=== PATIENT | male | born 1975 | race African-American/Black ===

== ENCOUNTER 2018-05-23 22:32 | Emergency (ER) | payer OTHER, MEDICAID ==
[~2018-05-23] VITALS: Ht 175.3 cm; Wt 82.0 kg
[2018-05-23 23:39] VITALS: BP 162/102
[2018-05-24] MEDS ORDERED: ACETAMINOPHEN 325MG TABLET PO ONE
[2018-05-24] MEDS ORDERED: MAGNESIUM/ALUMINUM HYDROXIDE/SIMETHICONE 30ML UDC PO ONE
== END 2018-05-23 23:58 | disposition home or self-care (01) ==
LOC: ER 22:32
DX: I10 Essential (primary) hypertension (principal); H53.2 Diplopia; F17.200 Nicotine dependence, unspecified, uncomplicated; Z90.81 Acquired absence of spleen
CPT/HCPCS: 99283

== ENCOUNTER 2018-08-29 10:57 | Emergency (ER) | payer MEDICAID, OTHER ==
[~2018-08-29] VITALS: Ht 175.3 cm; Wt 85.0 kg
[2018-08-29] MEDS ORDERED: SODIUM CHLORIDE 0.9% 1,000 ML IV ONE (11:46)
[2018-08-29] MEDS ORDERED: MORPHINE SULFATE 4 MG/ML CPJ (NOT FOR IM USE) IV ONE (12:00)
[2018-08-29] MEDS ORDERED: ONDANSETRON HCL 4MG/2ML INJ IV ONE (12:00)
[2018-08-29 12:12] LABS: CHLORIDE 105 mEq/L (98-107)
[2018-08-29 12:13] LABS: EOSINOPHILS % 0.2 % (0.0-5.0); HEMATOCRIT. 39.1 % (42.0-52.0); HEMOGLOBIN. 13.3 g/dL (14.0-18.0); LYMPHOCYTES % 27.1 % (20.0-50.0); MEAN CORPUSCULAR HEMOGLOBIN 30.9 pg (28.0-32.0); MEAN CORPUSCULAR VOLUME 90.7 fL (80.0-94.0); MONOCYTES % 8.8 % (2.0-8.0); NEUTROPHILS % 62.9 % (40.0-76.0); PLATELET 337 x1000/uL (130-400); RED BLOOD CELL COUNT 4.31 mill/uL (4.7-6.1); RED CELL DISTRIBUTION WIDTH 13.1 % (11.6-14.6)
[2018-08-29 12:16] LABS: ETHANOL BLOOD < 10 mg/dL
[2018-08-29 15:47] LABS: *BARBITURATES SCREEN URINE NEGATIVE (NEGATIVE); *BENZODIAZEPINES SCREEN URINE NEGATIVE (NEGATIVE); *COCAINE SCREEN URINE NEGATIVE (NEGATIVE); METHADONE URINE SCREEN NEGATIVE (NEGATIVE)
[2018-08-29 15:48] LABS: *AMPHETAMINES SCREEN URINE PRESUMTIVE POSITIVE (NEGATIVE); CANNABINOID URINE SCREEN PRESUMTIVE POSITIVE (NEGATIVE); OPIATES URINE SCREEN NEGATIVE (NEGATIVE); PHENCYCLIDINE URINE SCREEN NEGATIVE (NEGATIVE)
[2018-08-29 18:31] VITALS: BP 154/94
== END 2018-08-29 18:34 | disposition home or self-care (01) ==
LOC: ER 10:57
DX: S09.8XXA Other specified injuries of head, initial encounter (principal); Y08.89XA Assault by other specified means, initial encounter; Y93.89 Activity, other specified; Y92.89 Other specified places as the place of occurrence of the external cause; Y99.8 Other external cause status; I10 Essential (primary) hypertension; Z88.0 Allergy status to penicillin; Z90.81 Acquired absence of spleen
CPT/HCPCS: 36415; 70450; 70486; 71045; 72125; 72170; 73090; 73110; 73130; 73590; 80048; 80305; 80307; 80320; 80329; 85025; 96374; 99284; J2270; J2405; J7030; Z7610; G0480

== ENCOUNTER 2021-03-19 03:22 | Inpatient (IN) | payer MEDICAID ==
[~2021-03-19] VITALS: Ht 182.9 cm; Wt 101.2 kg
[2021-03-19] MEDS ORDERED: LIDOCAINE HCL/PF 1% 2ML VIAL ONE (03:30)
[2021-03-19] MEDS ORDERED: MAGNESIUM 2 G PREMIX 50 ML IV ONE (03:30)
[2021-03-19] MEDS ORDERED: IPRATROPIUM BROMIDE (0.02%) 0.5MG/2.5ML NEB HHN STA (03:30)
[2021-03-19] MEDS ORDERED: METHYLPREDNISOLONE SOD SUCC 125 MG/2 ML VIAL IV STA (03:30)
[2021-03-19] MEDS: ALBUTEROL (0.083%) 2.5MG/3ML NEB HHN SCH ×3 (03:30→04:26)
[2021-03-19] MEDS ORDERED: IPRATROPIUM/ALBUTEROL 0.5-3(2.5)MG/3ML NEB ONE (03:49)
[2021-03-19 03:56] LABS: BASOPHILS % 0.6 % (0.0-2.0); EOSINOPHILS % 0.2 % (0.0-5.0); HEMATOCRIT. 42.9 % (42.0-52.0); HEMOGLOBIN. 14.2 g/dL (14.0-18.0); LYMPHOCYTES % 13.2 % (20.0-50.0); MEAN CORPUSCULAR HEMOGLOBIN 28.8 pg (28.0-32.0); MEAN PLATELET VOLUME 8.9 fl (7.4-10.4); PLATELET 294 x1000/uL (130-400); RED BLOOD CELL COUNT 4.93 mill/uL (4.7-6.1); RED CELL DISTRIBUTION WIDTH 13.8 % (11.6-14.6)
[2021-03-19 04:02] LABS: BG BASE EXCESS 3.8 mmol/L (-2.0-2.0); BG DEOXYHEMOGLOBIN 21.4 % (0.0-5.0); BG FRACTION INSPIRED OXYGEN 50; BG METHEMOGLOBIN 0.3 % (0.0-1.5); BG OXYGEN SATURATION 78.1 % (92.0-98.5); BG OXYHEMOGLOBIN 76.3 % (94.0-97.0); BG PCO2 51.2 mmHg (35.0-45.0); BG PH 7.385 (7.350-7.450); BG PO2 43.4 mmHg (75.0-100.0); BG SAMPLE SITE RIGHT RADIAL; BG TOTAL HEMOGLOBIN 14.5 g/dL (12.0-18.0); BG VENT MODE MASK - BIPAP
[2021-03-19 04:14] LABS: CHLORIDE 98 mEq/L (98-107)
[2021-03-19] MEDS ORDERED: HYDRALAZINE 20MG/ML VIAL IV ONE (05:30)
[2021-03-19 11:06] LABS: BG CARBOXYHEMOGLOBIN 0.4 % (0.5-1.5); BG DEOXYHEMOGLOBIN 0.8 % (0.0-5.0); BG HCO3 ACT 28.4 mmol/L (22.0-26.0); BG METHEMOGLOBIN 0.4 % (0.0-1.5); BG OXYGEN SATURATION 99.2 % (92.0-98.5); BG OXYHEMOGLOBIN 98.4 % (94.0-97.0); BG PCO2 46.1 mmHg (35.0-45.0); BG PH 7.407 (7.350-7.450); BG PO2 185.2 mmHg (75.0-100.0); BG SAMPLE SITE RIGHT RADIAL; BG TOTAL HEMOGLOBIN 14.6 g/dL (12.0-18.0); BG VENT MODE MASK - BIPAP
[2021-03-19] MEDS ORDERED: HYDRALAZINE 20MG/ML VIAL IV PRN (11:15)
[2021-03-19] MEDS ORDERED: IPRATROPIUM/ALBUTEROL 0.5-3(2.5)MG/3ML NEB NEB PRN (11:15)
[2021-03-19] MEDS ORDERED: GUAIFENESIN 200MG/10ML SUGAR FREE UDC PO PRN (11:15)
[2021-03-19] MEDS ORDERED: ONDANSETRON HCL 4MG/2ML INJ IV PRN (11:15)
[2021-03-19] MEDS ORDERED: MAGNESIUM/ALUMINUM HYDROXIDE/SIMETHICONE 30ML UDC PO PRN (11:15)
[2021-03-19] MEDS: AMLODIPINE 10MG TABLET PO SCH (11:15)
[2021-03-19] MEDS ORDERED: ACETAMINOPHEN 325MG TABLET PO PRN ×2 (11:15)
[2021-03-19] MEDS: ENOXAPARIN 40MG/0.4ML SYR SUBCUT SCH (12:32)
[2021-03-19] MEDS: CLONIDINE 0.1MG TABLET PO PRN ×2 (12:49→16:27)
[2021-03-19] MEDS: SODIUM CHLORIDE 0.9% INJ 3ML FLUSH IVF SCH ×2 (14:00→22:00)
[2021-03-19 14:48] VITALS: BP 155/87
[2021-03-19 15:05] VITALS: BP 151/93
[2021-03-19 15:45] VITALS: BP 148/103
[2021-03-19] MEDS: IPRATROPIUM/ALBUTEROL 0.5-3(2.5)MG/3ML NEB HHN SCH ×3 (16:53→20:11)
[2021-03-19 17:38] VITALS: BP 135/78
[2021-03-19] MEDS: METHYLPREDNISOLONE SOD SUCC 125 MG/2 ML VIAL IV SCH ×2 (17:48→21:12)
[2021-03-19 20:00] VITALS: BP 135/70
[2021-03-19] MEDS ORDERED: ZOLPIDEM TARTRATE 5MG TABLET PO PRN (21:00)
[2021-03-19] MEDS: PANTOPRAZOLE 40MG DR TABLET PO SCH (21:12)
[2021-03-19] MEDS: DIPHENHYDRAMINE 50MG/ML VIAL IV PRN (21:13)
[2021-03-19 22:00] VITALS: BP 132/81
[2021-03-20] VITALS (12 sets, daily range): BP systolic 119–181; BP diastolic 66–106
[2021-03-20] MEDS: IPRATROPIUM/ALBUTEROL 0.5-3(2.5)MG/3ML NEB HHN SCH ×3 (02:09→13:13)
[2021-03-20] MEDS: METHYLPREDNISOLONE SOD SUCC 125 MG/2 ML VIAL IV SCH ×3 (05:25→21:09)
[2021-03-20] MEDS: SODIUM CHLORIDE 0.9% INJ 3ML FLUSH IVF SCH ×3 (06:00→21:09)
[2021-03-20] MEDS: PANTOPRAZOLE 40MG DR TABLET PO SCH (08:17)
[2021-03-20] MEDS: AMLODIPINE 10MG TABLET PO SCH (08:18)
[2021-03-20] MEDS: ENOXAPARIN 40MG/0.4ML SYR SUBCUT SCH (12:25)
[2021-03-20] MEDS: FAMOTIDINE 20MG TABLET PO SCH (21:09)
[2021-03-20] MEDS: DIPHENHYDRAMINE 50MG/ML VIAL IV PRN (21:12)
[2021-03-21] VITALS (8 sets, daily range): BP systolic 123–156; BP diastolic 71–89
[2021-03-21] MEDS: METHYLPREDNISOLONE SOD SUCC 125 MG/2 ML VIAL IV SCH ×2 (05:20→15:13)
[2021-03-21] MEDS: SODIUM CHLORIDE 0.9% INJ 3ML FLUSH IVF SCH (05:20)
[2021-03-21] MEDS: IPRATROPIUM/ALBUTEROL 0.5-3(2.5)MG/3ML NEB HHN SCH ×2 (08:50→13:53)
[2021-03-21] MEDS: FAMOTIDINE 20MG TABLET PO SCH (09:01)
[2021-03-21] MEDS: AMLODIPINE 10MG TABLET PO SCH (09:01)
[2021-03-21] MEDS: ENOXAPARIN 40MG/0.4ML SYR SUBCUT SCH (12:25)
[2021-03-21] MEDS ORDERED: NICOTINE 21MG PATCH TD SCH (15:00)
[2021-03-21] MEDS ORDERED: CARVEDILOL 6.25 MG TABLET PO SCH (21:00)
[2021-03-21] MEDS ORDERED: METHYLPREDNISOLONE SOD SUCC 40 MG/ML VIAL IV SCH (22:00)
== END 2021-03-21 17:20 | disposition left against medical advice (07) | DRG 133 ==
LOC: ER 03:22 → MICUSO 04:59 → EDBEDREQSVC 12:17 → ENRESERV 13:11 → CANBEDREQ 15:45 → 5EST 16:17
PROVIDERS: ADMIT Internal Medicine; ATTEND Internal Medicine
PROC: 5A09357 Assistance with Respiratory Ventilation, Less than 24 Consecutive Hours, Continuous Positive Airway Pressure (ICD-10-PCS; principal; 2021-03-19)
DX: J96.01 Acute respiratory failure with hypoxia (principal); R65.11 Systemic inflammatory response syndrome (SIRS) of non-infectious origin with acute organ dysfunction; I50.20 Unspecified systolic (congestive) heart failure; I11.0 Hypertensive heart disease with heart failure; J96.02 Acute respiratory failure with hypercapnia; J45.901 Unspecified asthma with (acute) exacerbation; E66.9 Obesity, unspecified; F12.90 Cannabis use, unspecified, uncomplicated; F17.200 Nicotine dependence, unspecified, uncomplicated; Z20.822 Contact with and (suspected) exposure to COVID-19; Z60.2 Problems related to living alone; Z59.00 Homelessness unspecified; Z90.81 Acquired absence of spleen; Z88.0 Allergy status to penicillin; Z68.30 Body mass index [BMI] 30.0-30.9, adult
CPT/HCPCS: 36415; 36600; 71045; 73620; 80053; 82375; 82805; 83605; 83880; 84484; 85025; 85379; 87426; 93005; 93306; 94640; 94660; 99291; J0360; J1200; J1650; J2930; J3475; J3490